=== PATIENT | male | born 1980 | race Hispanic/Latino ===

== ENCOUNTER 2021-09-21 10:30 | Emergency (ER) | payer OTHER ==
[~2021-09-21] VITALS: Ht 182.9 cm; Wt 63.5 kg
[2021-09-21 10:31] VITALS: BP 114/78
[2021-09-21] MEDS ORDERED: IBUP-2070 PO (13:14)
[2021-09-21] MEDS ORDERED: PENI500T2 PO (13:14)
[2021-09-21] MEDS ORDERED: IBUPROFEN 600 MG TABLET PO ONE (13:30)
== END 2021-09-21 13:59 | disposition home or self-care (01) ==
LOC: EDH 10:30
DX: K02.9 Dental caries, unspecified (principal); Z79.1 Long term (current) use of non-steroidal anti-inflammatories (NSAID)